=== PATIENT | female | born 1990 | race Caucasian/White ===

== ENCOUNTER 2020-10-26 09:33 | Emergency (ER) | payer BC, MEDICAID, OTHER ==
[~2020-10-26] VITALS: Ht 165.1 cm; Wt 95.0 kg
[~2020-10-26 09:33] MED LIST: DOCU-131 PO; IBUP-1222 PO; OXYC1TAB14 PO; PREN1TAB60 PO; SERT100T PO
[2020-10-26 10:33] LABS: BASOPHILS % (AUTO) 0 % (0-1); EOSINOPHILS % (AUTO) 1 % (1-7); LYMPHOCYTES % (AUTO) 13 % (22-44); MEAN CORPUSCULAR HEMOGLOBIN 28.4 pg (27.0-34.8); MEAN CORPUSCULAR HGB CONC 33.5 g/dL (32.4-35.8); MEAN PLATELET VOLUME 7.9 fL (7.4-10.4); MONOCYTES % (AUTO) 5 % (2-9); NEUTROPHILS % (AUTO) 81 % (42-75); PLATELET COUNT 247 x10^3/uL (130-400); RED BLOOD COUNT 3.82 x10^6/uL (3.82-5.3); RED CELL DISTRIBUTION WIDTH 15.3 % (9.6-15.2)
[2020-10-26 10:35] LABS: MD NO
[2020-10-26 10:43] LABS: ALBUMIN 2.7 g/dL (3.4-5.0); ANION GAP 8 mmol/L (5-15); CHLORIDE 106 mmol/L (98-107)
[2020-10-26 10:50] LABS: ALANINE AMINOTRANSFERASE 16 U/L (12-78); ALKALINE PHOSPHATASE 89 U/L (45-117); BILIRUBIN,TOTAL 0.2 mg/dL (0.2-1.0); CREATININE 0.49 mg/dL (0.55-1.02)
--- NOTE | 2020-10-26 11:00 | NUR ---
PT HAS CP SOB AND ANXEITY, DENIES CRAMPING OR BLEEDING, NO ABDOMINAL DISCOMFORT
--- NOTE | 2020-10-26 11:18 | NUR ---
PT 27 WEEKS, L&D CALLED
[2020-10-26 12:55] VITALS: BP 123/61
--- NOTE | 2020-10-26 13:12 | NUR ---
Patient given discharge instructions and they have confirmed that they understand the instructions. Patient stable and ambulatory with steady gait from ED to private vehicle.
== END 2020-10-26 13:13 | disposition home or self-care (01) ==
LOC: ED 10:21
DX: O26.892 Other specified pregnancy related conditions, second trimester (principal); R06.00 Dyspnea, unspecified; F41.1 Generalized anxiety disorder; R94.31 Abnormal electrocardiogram [ECG] [EKG]; Z3A.27 27 weeks gestation of pregnancy
CPT/HCPCS: 36415; 71045; 80053; 83880; 85025; 85379; 93005; 99285

== ENCOUNTER 2020-12-27 07:23 | Inpatient (IN) | payer OTHER ==
[~2020-12-27] VITALS: Ht 165.1 cm; Wt 94.5 kg
[2020-12-27] MEDS ORDERED: LACTATED RINGERS 1,000 ML IVBOLUS ONE (08:30)
[2020-12-27] MEDS ORDERED: FENTANYL PF 100 MCG/2ML ONE ×2 (08:57→13:04)
[2020-12-27 08:58] LABS: MICROSCOPIC INDICATED
[2020-12-27] MEDS: LACTATED RINGERS 1,000 ML IV SCH ×3 (09:00→16:00)
[2020-12-27] MEDS ORDERED: FENTANYL PF 100 MCG/2ML IVPush ONE ×3 (09:30→13:00)
[2020-12-27] MEDS ORDERED: SODIUM CITRATE/CITRIC ACID 15 ML UDC ONE ×2 (10:19→13:35)
[2020-12-27] MEDS ORDERED: METOCLOPRAMIDE 5 MG/ML, 2ML ONE (10:19)
[2020-12-27] MEDS ORDERED: NITROFURANTOIN (MACROBID) 100 MG CAPSULE ONE (11:52)
[2020-12-27] MEDS ORDERED: NITROFURANTOIN (MACROBID) 100 MG CAPSULE PO ONE (12:30)
[2020-12-27] MEDS ORDERED: SODIUM CITRATE/CITRIC ACID 30 ML UDC PO ONE (12:30)
[2020-12-27] MEDS ORDERED: METOCLOPRAMIDE 5 MG/ML, 2ML IV ONE (12:30)
[2020-12-27] MEDS ORDERED: NEWBORN KIT ONE (12:35)
[2020-12-27] MEDS ORDERED: LABETALOL 5MG/ML, 20ML IV PRN (13:00)
[2020-12-27] MEDS ORDERED: MEPERIDINE/PF 25MG/0.5ML IVPush PRN (13:00)
[2020-12-27] MEDS ORDERED: PROMETHAZINE 25 MG/ML, 1ML IV PRN (13:00)
[2020-12-27] MEDS ORDERED: ONDANSETRON 2MG/ML, 2ML IVPush PRN (13:00)
[2020-12-27] MEDS ORDERED: hydrALAzine 20 MG/ML, 1ML IV PRN (13:00)
[2020-12-27] MEDS ORDERED: HYDROcodone/APAP 7.5-325MG/15ML UDC PO PRN (13:00)
[2020-12-27] MEDS ORDERED: MIDAZOLAM 1 MG/ML, 2ML IV PRN (13:00)
[2020-12-27] MEDS ORDERED: ALBUTEROL SULFATE 2.5 MG/3 ML NPPB PRN (13:00)
[2020-12-27] MEDS ORDERED: OXYcodone 5 MG/5 ML ORAL.SOL UDC PO PRN (13:00)
[2020-12-27] MEDS ORDERED: EPHEDRINE 50 MG/ML, 1ML IVPush PRN (13:00)
[2020-12-27] MEDS ORDERED: METOPROLOL 1 MG/ML, 5ML IV PRN (13:00)
[2020-12-27] MEDS ORDERED: FENTANYL PF 100 MCG/2ML IV PRN (13:00)
[2020-12-27 13:04] LABS: MEAN CORPUSCULAR HEMOGLOBIN 28.2 pg (27.0-34.8); MEAN CORPUSCULAR HGB CONC 33.7 g/dL (32.4-35.8); MEAN PLATELET VOLUME 8.1 fL (7.4-10.4); PLATELET COUNT 259 x10^3/uL (130-400); RED BLOOD COUNT 4.03 x10^6/uL (3.82-5.3); RED CELL DISTRIBUTION WIDTH 16.3 % (9.6-15.2)
[2020-12-27] MEDS ORDERED: KETOROLAC 30 MG/1 ML ONE (13:04)
[2020-12-27] MEDS ORDERED: PHENYLEPHRINE 10 MG/ML ONE (13:04)
[2020-12-27] MEDS ORDERED: DEXAMETHASONE 4 MG/ML, 1ML ONE (13:04)
[2020-12-27] MEDS ORDERED: CEFAZOLIN 1,000 MG ONE (13:04)
[2020-12-27] MEDS ORDERED: OXYTOCIN 10 UNITS/ML, 1ML ONE (13:04)
[2020-12-27] MEDS ORDERED: EPHEDRINE 50 MG/ML, 1ML ONE (13:04)
[2020-12-27] MEDS ORDERED: ONDANSETRON 2MG/ML, 2ML ONE (13:04)
[2020-12-27 13:35] LABS: BAND#(MANUAL) 0.16 x10^3/uL; BANDS%(MANUAL) 1 % (0-7); LYMPH#(MANUAL) 1.79 x10^3/uL (1-3.4); LYMPHS% (MANUAL) 11 % (22-44); MONOS#(MANUAL) 0.49 x10^3/uL (0.3-2.7); MONOS% (MANUAL) 3 % (2-9); SEG#(MANUAL) 13.86 x10^3/uL (1.8-6.8); SEGS% (MANUAL) 85 % (42-75)
[2020-12-27 13:36] LABS: <PLATELET ESTIMATE> ADEQUATE; <PLT MORPHOLOGY> NORMAL PLT MORPH; <RBC MORPHOLOGY> NORMAL
[2020-12-27] MEDS ORDERED: HYDROmorphone 2 MG/ML, 1ML ONE (13:40)
[2020-12-27] MEDS ORDERED: CARBOPROST TROMETHAMINE 250 MCG/ML, 1ML IM PRN (16:00)
[2020-12-27] MEDS ORDERED: IBUPROFEN 800 MG TABLET PO PRN (16:00)
[2020-12-27] MEDS ORDERED: morphine SULFATE 10 MG/ML, 1ML IVPush PRN (16:00)
[2020-12-27] MEDS ORDERED: MISOPROSTOL 200 MCG TABLET PR PRN (16:00)
[2020-12-27] MEDS ORDERED: ENOXAPARIN 40 MG/0.4 ML SQ SCH (16:00)
[2020-12-27] MEDS ORDERED: MORPHINE SULFATE 4 MG/ML, 1ML IVPush PRN (16:00)
[2020-12-27] MEDS ORDERED: ONDANSETRON 2MG/ML, 2ML IV PRN (16:00)
[2020-12-27] MEDS ORDERED: LACTATED RINGERS 1,000 ML IV SCH (16:00)
[2020-12-27] MEDS ORDERED: METHYLERGONOVINE 0.2 MG/ML IM PRN (16:00)
[2020-12-27] MEDS ORDERED: OXYcodone IR 5MG TABLET PO PRN (16:00)
[2020-12-27] MEDS: OXYTOCIN 30U/ 0.9% NaCL 500ML 500 ML IV SCH (16:45)
[2020-12-27] MEDS: HYDROmorphone 2 MG/ML, 1ML IVPush PRN ×2 (16:50→17:00)
[2020-12-27 18:50] VITALS: BP 123/70
[2020-12-27] MEDS: OXYcodone IR 5MG TABLET PO PRN ×2 (20:02→23:46)
[2020-12-27 21:00] VITALS: BP 108/66
[2020-12-27] MEDS: KETOROLAC 30 MG/1 ML IV SCH (21:40)
[2020-12-27 22:46] LABS: MEAN CORPUSCULAR HEMOGLOBIN 28.1 pg (27.0-34.8); MEAN CORPUSCULAR HGB CONC 33.2 g/dL (32.4-35.8); MEAN PLATELET VOLUME 8.4 fL (7.4-10.4); PLATELET COUNT 208 x10^3/uL (130-400); RED BLOOD COUNT 3.48 x10^6/uL (3.82-5.3); RED CELL DISTRIBUTION WIDTH 15.8 % (9.6-15.2)
[2020-12-27 23:09] LABS: ANISOCYTOSIS 1+; BAND#(MANUAL) 1.31 x10^3/uL; BANDS%(MANUAL) 8 % (0-7); LYMPH#(MANUAL) 0.33 x10^3/uL (1-3.4); LYMPHS% (MANUAL) 2 % (22-44); METAMYELOCYTES# (MANUAL) 0.33 x10^3/uL (0-0); METAMYELOCYTES% (MANUAL) 2 % (0-1); MONOS#(MANUAL) 0.16 x10^3/uL (0.3-2.7); MONOS% (MANUAL) 1 % (2-9); OVALOCYTES 1+; REACTIVE LYMPHS # (MANUAL) 0.16 x10^3/uL (0-0); REACTIVE LYMPHS % (MANUAL) 1 % (0-0); SEGS% (MANUAL) 86 % (42-75)
[2020-12-27 23:10] LABS: <PLATELET ESTIMATE> ADEQUATE; TOXIC GRAN 1+
[2020-12-27 23:11] LABS: <PLT MORPHOLOGY> NORMAL PLT MORPH
[2020-12-28] VITALS (7 sets, daily range): BP systolic 98–124; BP diastolic 60–72
[2020-12-28] MEDS: OXYTOCIN 30U/ 0.9% NaCL 500ML 500 ML IV SCH (02:00)
[2020-12-28] MEDS: LACTATED RINGERS 1,000 ML IV SCH (02:00)
[2020-12-28] MEDS: KETOROLAC 30 MG/1 ML IV SCH ×2 (03:30→09:15)
[2020-12-28] MEDS: PRENATAL VIT/IRON/FA 1 EACH TABLET PO SCH (09:01)
[2020-12-28] MEDS: DOCUSATE 100 MG CAPSULE PO PRN ×2 (09:01→21:39)
[2020-12-28] MEDS: OXYcodone IR 5MG TABLET PO PRN ×4 (09:02→21:39)
[2020-12-28] MEDS ORDERED: IBUPROFEN 600 MG TABLET ONE (15:42)
[2020-12-28] MEDS: IBUPROFEN 800 MG TABLET PO PRN ×2 (15:50→23:28)
[2020-12-28] MEDS: SIMETHICONE 80 MG CHEW TAB PO PRN (19:18)
[2020-12-29] MEDS: HYDROcodone/APAP 5/325 TABLET PO PRN ×4 (01:42→21:20)
[2020-12-29] MEDS: SIMETHICONE 80 MG CHEW TAB PO PRN (05:38)
[2020-12-29 07:10] VITALS: BP 98/63
[2020-12-29] MEDS: DOCUSATE 100 MG CAPSULE PO PRN (07:50)
[2020-12-29] MEDS: IBUPROFEN 800 MG TABLET PO PRN ×2 (07:51→15:45)
[2020-12-29] MEDS: PRENATAL VIT/IRON/FA 1 EACH TABLET PO SCH (09:30)
[2020-12-29 19:15] VITALS: BP 114/57
[2020-12-30] MEDS: IBUPROFEN 800 MG TABLET PO PRN ×2 (01:07→09:36)
[2020-12-30 07:15] VITALS: BP 126/78
[2020-12-30] MEDS ORDERED: OXYC-302 PO (07:20)
[2020-12-30] MEDS: DOCUSATE 100 MG CAPSULE PO PRN (09:35)
[2020-12-30] MEDS: PRENATAL VIT/IRON/FA 1 EACH TABLET PO SCH (09:35)
[2020-12-30] MEDS: HYDROcodone/APAP 5/325 TABLET PO PRN (09:36)
[2020-12-30] MEDS ORDERED: IBUPROFEN 800 MG TABLET PO PRN (16:00)
== END 2020-12-30 13:02 | disposition home or self-care (01) | DRG 786 ==
LOC: LDOP 07:23 → LDIP 12:30 → 2NW 17:10
PROVIDERS: ADMIT Student in an Organized Health Care Education/Training Program; ATTEND Student in an Organized Health Care Education/Training Program
PROC: 10D00Z1 Extraction of Products of Conception, Low, Open Approach (ICD-10-PCS; principal; 2020-12-27)
PROC: 0UB00ZZ Excision of Right Ovary, Open Approach (ICD-10-PCS; 2020-12-27)
DX: O34.83 Maternal care for other abnormalities of pelvic organs, third trimester (principal); O75.3 Other infection during labor; N83.201 Unspecified ovarian cyst, right side; O34.211 Maternal care for low transverse scar from previous cesarean delivery; F32.9 Major depressive disorder, single episode, unspecified; O99.344 Other mental disorders complicating childbirth; Z20.822 Contact with and (suspected) exposure to COVID-19; Z37.0 Single live birth; Z3A.36 36 weeks gestation of pregnancy
CPT/HCPCS: 36415; 81001; 85025; 86592; 86850; 86900; 87086; 87635; 88305; G0378; J0690; J1100; J1170; J1885; J2405; J3010; J2370; J2590; J2765; J7120